=== PATIENT | female | born 2005 | race Hispanic/Latino ===

== ENCOUNTER 2025-04-24 18:29 | Emergency (ER) | payer SELFPAY ==
[~2025-04-24] VITALS: Ht 149.9 cm; Wt 44.5 kg
[2025-04-24 18:40] VITALS: BP 110/72; PULSE 99; RESP 16; TEMP 98; O2SAT 97
--- NOTE | 2025-04-24 20:25 | ERN ---
General Chief Complaint: Back Pain or Injury Stated Complaint: SACRAL PAIN Time Seen by MD: 18:36 Time Seen by Midlevel: 18:36 Source: patient History of Present Illness Initial Comments 20-year-old female presents to the emergency department due to tailbone pain. Patient reports injury multiple years ago, states she fell last night landing directly on her tailbone. Denies any bladder or bowel incontinence, or further injuries. Denies significant past medical history. LMP late February. Allergies: Coded Allergies: Penicillins (Unverified Allergy, Unknown, 04/24/25) Past Medical History Past Medical History: No Pertinent History Medical History Other: denies pmhx Past Surgical History: None Female( History) : 3 Para: 3 ROS Dictation Constitutional: Negative for fever,chills, and weight loss Eyes: Negative for injury, pain,redness, and discharge ENT: Negative for injury,pain or swelling Cardiovascular: Negative for chest pain, palpitations, and edema Respiratory: Negative for shortness of breath, cough, and wheezing, Abdomen/GI: Negative for abdominal pain, nausea, vomiting, diarrhea, and constipation Back: Positive for tailbone pain Negative for injury and pain : Negative for painful urination, bleeding or discharge MS/Extremity: Negative for injury and deformity Skin: Negative for rash, and discoloration Neuro: Negative for headache, weakness, numbness, tingling, and seizure Psych: Negative for suicide ideation, homicidal ideation, and hallucinations Physical Exam Physical Exam Dictation General: awake, alert, no acute distress Head/Face: Normocephalic, atraumatic Eyes: PERRL, EOMI, normal conjunctiva ENT: oral cavity clear, oral mucosa moist Neck: Supple, normal range of motion Cardiovascular: RRR, normal S1/S2 Respiratory: CTAB, no respiratory distress Skin: Warm, dry, normal turgor, no rash MS/Extremity: Pulses equal, no cyanosis, neurovascular intact, FROM Back: Mild coccyx tenderness Neuro: COAx4, GCS 15, strength 5/5, CN 2-12 intact, normal cerebellar exam, normal gait Psych: Normal behavior, mood, and affect normal Results Laboratory and Microbiology Lab and Micro Result Laboratory Tests Test 04/24/25 18:45 Urine HCG, Qualitative POSITIVE (NEGATIVE) H Labs Reviewed?: Yes MDM MDM: Differential diagnosis: Fracture, contusion Rationale: 20-year-old female presents to the emergency department due to tailbone pain. Patient reports injury multiple years ago, states she fell last night landing directly on her tailbone. Denies any bladder or bowel incontinence, or further injuries. Denies significant past medical history. LMP late February. Urine positive therefore unable to continue with per sacral/coccyx x- ray. Patient was administered acetaminophen in the ED. Educated on findings and diagnosis. Advised to follow up with PCP. Return to the emergency department if any worsening symptoms. Patient verbalized understanding. Patient stable for discharge. There are no social concerns with this patient. I independently interpreted the test that were performed, results were reviewed by me and considered findings on radiology if ordered. Medical management and examination interpretation discussions were had by me with other qualified healthcare professionals as indicated for the patient's care. ED Course Orders Procedure Category Date Status Time ,Urine Test LAB 04/24/25 Complete 19:00 Acetaminophen 500mg PHA 04/24/25 In Process Tab (Tylenol 500mg T 20:30 Current Medications Medications (Trade) Dose Ordered Sig/Marilyn Route PRN Reason Start Time Stop Time Status Last Admin Dose Admin Acetaminophen (TYLenol 500MG TAB) 1,000 mg ONCE ONCE PO 04/24/25 20:30 04/24/25 20:31 Vital Signs Date Time Temp Pulse Resp B/P (MAP) Pulse Ox O2 Delivery O2 Flow Rate FiO2 04/24/25 18:40 98.1 99 16 110/72 97 Room Air* 0 21 04/24/25 18:37 98.1 99 16 110/72 97 Room Air 0 DX & DISP Disposition: Discharge Departure Impression: Primary Impression: Coccyx pain Additional Impression: Condition: Stable Additional Instructions: Discharge home. Rest. Follow up with primary care DrBarbara in 24 hours. Return to the ER for any acute changes or worsening symptoms. If any medications were prescribed take as directed. Okay to continue home med ications unless otherwise discussed during your visit in the emergency room today. Patient was also advised to follow-up with primary care physician in 1 to 2 days for continued monitoring. Referrals: SELF,REFERRAL (PCP) I performed the substantive portion of the visit. I have reviewed and personally made and approve the management plan that is documented in the notes by myself or the MAYLIN. I acknowledge full responsibility for the patient's management plan. MOR GAN PAC Apr 24, 2025 20:25
== END 2025-04-24 20:29 | disposition home or self-care (01) ==
LOC: EDH 18:29
DX: M53.3 Sacrococcygeal disorders, not elsewhere classified (principal); O26.891 Other specified pregnancy related conditions, first trimester; Z88.0 Allergy status to penicillin; Z3A.01 Less than 8 weeks gestation of pregnancy
CPT/HCPCS: 81025; 99282